=== PATIENT | female | born 1965 | race Two or more races ===

== ENCOUNTER 2016-07-25 22:37 | Inpatient (IN) | payer OTHER ==
[2016-07-25] MEDS ORDERED: NS 1,000 ML IV ONE ×2 (22:51→23:36)
[2016-07-25] MEDS ORDERED: IPRATROPIUM/ALBUTEROL 3 ML DEYVIAL IH ONE ×2 (22:55→23:37)
--- NOTE | 2016-07-25 23:00 | EDPHY ---
H & P Stated Complaint: 5 DAYS COUGH,SOB,DUARTE,FEVER,BLISTERS IN MOUTH, CP WITH COUGH, 2 ADVIL 2100 HPI/ROS: HPI CHIEF COMPLAINT: Cough, shortness of breath, productive cough, chills HISTORY OF PRESENT ILLNESS: This patient very pleasant 51-year-old female denies taking anydaily medications, no significant medical history, no history of pneumonia or pulmonary embolism. She presents emergency room being sick for 6 days. patient tells me that on Wednesday she started with a upper respiratory tract infection, she was in Wednesday she had worsening cough over the week it has progressively gotten worse she has had chills, nausea, productive cough with green yellow and possibly blood tinged sputum, posttussive emesis. No diarrhea. No chest pain but has pain when she coughs. No calf pain or leg swelling. She decided come the emergency room as she has been feeling worsening shortness of breath, cough, sore throat, chest discomfort. Of note this patient is Maltese-speaking only a hourly sign language interpreter was used at bedside. Of note also son speaks Thai and Maltese. Past Medical History: No medical history Past Surgical History: No surgical history Social History: denies daily use drugs alcohol tobacco products, and son at bedside, Maltese-speaking only, son speaks Maltese, Family History: Noncontributory ROS REVIEW OF SYSTEMS: A comprehensive 10 point review of systems is otherwise negative aside from elements mentioned in the history of present illness. Exam Constitutional appears nontoxic triage nursing summary reviewed, vital signs reviewed, awake/alert. Vital signs are reviewed this patient's hypoxic, tachycardic. Eyes normal conjunctivae and sclera, EOMI, PERRLA. HENT normal inspection, atraumatic, moist mucus membranes, no epistaxis, neck supple/ no meningismus, no raccoon eyes. Respiratory tachypneic, faint wheezing, productive sounding cough Cardiovascular tachycardia, regular rhythm, no murmur, no edema, distal pulses normal. Gastrointestinal soft, non-tender, no rebound, no guarding, normal bowel sounds, no distension, no pulsatile mass. Genitourinary no CVA tenderness. Musculoskeletal no midline vertebral tenderness, full range of motion, no calf swelling, no tenderness of extremities, no meningismus, good pulses, neurovascularly intact. Skin pink, warm, & dry, no rash, skin atraumatic. Neurologic awake, alert and oriented x 3, AAOx3, moves all 4 extremities equally, motor intact, sensory intact, CN II-XII intact, normal cerebellar, normal vision, normal speech. Psychiatric normal mood/affect. Heme/Lymph/Immune no lymphadenopathy. Differential Diagnosis: Includes but is not limited to in a particular order influenza, upper respiratory tract infection, viral pneumonia, bacterial pneumonia, pneumothorax, CHF, ACS Medical Decision Making: Plan for this patient patient had an IV established obtain blood work, she will be placed on full senior accounting clerk she will have an EKG, troponin should be hydrated with IV fluids normal saline 1 L gently, obtain lactic acid, she will need a chest x-ray visualize lung messina to make sure she does have focal pneumonia. Will check D-dimer. Vital signs reviewed triage noted to be hypoxic tachycardic. Afebrile.Tachypneic. Re-evaluation: EKG interpretation by me on record in [facility] system. Impression time of EKG 2300, this is sinus tachycardia rate of 103, I do not appreciate ST elevation or significant ST depression or significant T-wave abnormalities. QRS narrow. No signs of cardiac arrhythmia. Unremarkable nonischemic EKG. ED x-ray chest two view: haziness around right heart border, and haziness posterior lung messina. Retrocardiac. 2337: Re-examination at this time patient feels much better after DuoNeb breathing treatment. Resting comfortably. She is requesting a 2nd breathing treatment. Currently vitals heart rate 102, blood pressure 119/74, pulse ox 99 % on room air CT scan of the angiogram chest with IV contrast. The results of the study are negative for pulmonary embolism or focal pneumonia, airways are inflamed The study was read by Dr. Jones. I viewed the images myself on the PACS system. Re-eval: Time 1226: This time patient is noted to still be tachycardic and tachypneic. She required 2 L of oxygen to hold her oxygen saturation. Here in emergency room she has received 2 L of fluid, IV Solu-Medrol, 2 DuoNeb breathing treatments, IV azithromycin. Plan for this patient given that she is having tachypnea still tachycardia, hypoxia of oxygen she will require hospitalization overnight for IV fluids, and pulmonary care. 1235: Patient was briefly pulled off oxygen 2 L nasal cannula she desatted down to 86% heart rate went up to 120s. She is placed back on oxygen. 1245: patient is currently hemodynamically stable no acute distress resting comfortably on 2 L nasal cannula 95% O2 sat. Requires admission for hypoxia, tachycardia, dehydration, Upper respiratory tract infection bronchitis. Patient agrees stays updated family as well. Spoke with Dr. Mota who agrees to admit. Source: Patient - Personal History LMP (Females 10-55): Irregular Current Tetanus/Diphtheria Vaccine: Unsure - Medical/Surgical History Hx Asthma: No Hx Chronic Respiratory Disease: No Hx Diabetes: No Hx Cardiac Disease: No Hx Renal Disease: No Hx Cirrhosis: No Hx Alcoholism: No Hx HIV/AIDS: No Hx Splenectomy or Spleen Trauma: No Other PMH: C-SECT X2, MISCARAGE - Social History Smoking Status: Never smoked Constitutional: Initial Vital Signs Temperature (C) 37.2 C 07/25/16 22:44 Heart Rate 113 H 07/25/16 22:44 Respiratory Rate 30 H 07/25/16 22:44 Blood Pressure 152/87 H 07/25/16 22:44 O2 Sat (%) 87 L 07/25/16 22:44 O2 Delivery Mode Room Air O2 (L/minute) 4 Allergies/Adverse Reactions: No Known Allergies Allergy (Unverified 07/25/16 22:43) Medical Decision Making - Data Points Laboratory Results: Laboratory Results 07/25/16 23:00 07/25/16 23:00 07/25/16 07/25/16 07/25/16 23:15 23:00 23:00 WBC RBC Hgb Hct MCV MCH MCHC RDW Plt Count MPV Neut % (Auto) Lymph % (Auto) [place] % (Auto) Eos % (Auto) Baso % (Auto) Nucleat RBC Rel Count Absolute Neuts (auto) Absolute Lymphs (auto) Absolute Monos (auto) Absolute Eos (auto) Absolute Basos (auto) Absolute Nucleated RBC Immature Gran % Immature Gran # PT INR APTT D-Dimer VBG Lactic Acid 1.5 mmol/L mmol/L (0.7-2.1) Sodium 138 mEq/L mEq/L (134-144) Potassium 3.6 mEq/L mEq/L (3.5-5.2) Chloride 100 mEq/L mEq/L (97-110) Carbon Dioxide 24 mEq/l mEq/l (22-31) Anion Gap 14 mEq/L mEq/L (8-16) BUN 8 mg/dL mg/dL (7-23) Creatinine 0.5 mg/dL L mg/dL (0.6-1.0) Estimated GFR > 60 Glucose 143 mg/dL H mg/dL (70-100) Calcium 9.1 mg/dL mg/dL (8.5-10.4) Magnesium 2.4 mg/dL H mg/dL (1.6-2.3) Total Bilirubin 0.7 mg/dL mg/dL (0.1-1.4) Conjugated Bilirubin 0.3 mg/dL mg/dL (0.0-0.5) Unconjugated Bilirubin 0.4 mg/dL mg/dL (0.0-1.1) AST 28 IU/L IU/L (14-46) ALT 40 IU/L IU/L (9-52) Alkaline Phosphatase 84 IU/L IU/L (38-126) Creatine Kinase 91 IU/L IU/L (0-156) CK-MB (CK-2) Fraction 0.68 ng/mL ng/mL (0-3.19) Troponin I < 0.012 ng/mL ng/mL (0-0.034) NT-Pro-B Natriuret Pep 41 pg/mL pg/mL (0-125) Total Protein 8.1 g/dL g/dL (6.3-8.2) Albumin 4.3 g/dL g/dL (3.5-5.0) Lipase 70.0 IU/L IU/L (23-300) Influenza Typ A,B (DFA) NEGATIVE FOR FLU (NEGATIVE) 07/25/16 07/25/16 23:00 23:00 WBC 13.22 10^3/uL H 10^3/uL (3.80-9.50) RBC 4.60 10^6/uL 10^6/uL (4.18-5.33) Hgb 13.5 g/dL g/dL (12.6-16.3) Hct 39.6 % % (38.0-47.0) MCV 86.1 fL fL (81.5-99.8) MCH 29.3 pg pg (27.9-34.1) MCHC 34.1 g/dL g/dL (32.4-36.7) RDW 13.0 % % (11.5-15.2) Plt Count 309 10^3/uL 10^3/uL (150-400) MPV 10.2 fL fL (8.7-11.7) Neut % (Auto) 71.7 % % (39.3-74.2) Lymph % (Auto) 13.8 % L % (15.0-45.0) [place] % (Auto) 7.0 % % (4.5-13.0) Eos % (Auto) 5.9 % % (0.6-7.6) Baso % (Auto) 0.5 % % (0.3-1.7) Nucleat RBC Rel Count 0.0 % % (0.0-0.2) Absolute Neuts (auto) 9.47 10^3/uL H 10^3/uL (1.70-6.50) Absolute Lymphs (auto) 1.82 10^3/uL 10^3/uL (1.00-3.00) Absolute Monos (auto) 0.93 10^3/uL H 10^3/uL (0.30-0.80) Absolute Eos (auto) 0.78 10^3/uL H 10^3/uL (0.03-0.40) Absolute Basos (auto) 0.07 10^3/uL 10^3/uL (0.02-0.10) Absolute Nucleated RBC 0.00 10^3/uL 10^3/uL (0-0.01) Immature Gran % 1.1 % % (0.0-1.1) Immature Gran # 0.15 10^3/uL H 10^3/uL (0.00-0.10) PT 13.4 SEC SEC (12.0-15.0) INR 1.03 (0.83-1.16) APTT 28.9 SEC SEC (23.0-38.0) D-Dimer 0.64 ug/mLFEU H ug/mLFEU (0.00-0.50) VBG Lactic Acid Sodium Potassium Chloride Carbon Dioxide Anion Gap BUN Creatinine Estimated GFR Glucose Calcium Magnesium Total Bilirubin Conjugated Bilirubin Unconjugated Bilirubin AST ALT Alkaline Phosphatase Creatine Kinase CK-MB (CK-2) Fraction Troponin I NT-Pro-B Natriuret Pep Total Protein Albumin Lipase Influenza Typ A,B (DFA) Medications Given: Discontinued Medications Albuterol/Ipratropium (Duoneb) 3 ml IH EDNOW ONE Stop: 07/25/16 22:56 Last Admin: 07/25/16 23:08 Dose: 3 ml Albuterol/Ipratropium (Duoneb) 3 ml IH EDNOW ONE Stop: 07/25/16 23:38 Last Admin: 07/26/16 00:09 Dose: 3 ml Sodium Chloride (Ns) 1,000 mls @ 0 mls/hr IV ONCE ONE PRN Reason: Wide Open Stop: 07/25/16 22:52 Last Admin: 07/25/16 23:08 Dose: 1,000 mls Sodium Chloride (Ns) 1,000 mls @ 0 mls/hr IV ONCE ONE PRN Reason: Wide Open Stop: 07/25/16 23:37 Last Admin: 07/26/16 00:10 Dose: 1,000 mls Methylprednisolone Sodium Succinate (Solu-Medrol) 125 mg IVP EDNOW ONE Stop: 07/26/16 00:09 Last Admin: 07/26/16 00:35 Dose: 125 mg Departure - Departure Disposition: [facility] Inpatient Acute Clinical Impression: Bronchitis, Hypoxia Condition: Fair Referrals: NONE *PRIMARY CARE P,. [Primary Care Provider] - As per Instructions
--- NOTE | 2016-07-25 23:02 | CPEKG ---
Heart Rate: 103 RR Interval: 583 P-R Interval: 148 QRSD Interval: 72 QT Interval: 328 QTC Interval: 430 P [place]: 47 QRS [place]: 76 T Wave [place]: 64 EKG Severity - OTHERWISE NORMAL ECG - EKG Impression: SINUS TACHYCARDIA Electronically Signed By: Bear Lamb 26-Jul-2016 06:41:29
[2016-07-25 23:07] LABS: % IMMATURE GRANULYOCYTES 1.1 % (0.0-1.1); ABSOLUTE IMMATURE GRANULOCYTES 0.15 10^3/uL (0.00-0.10); ADD DIFF? NO; ADD MORPH? NO; ADD SCAN? NO; ATYPICAL LYMPHOCYTE FLAG 30 (0-99); FRAGMENT RBC FLAG 0 (0-99); HEMATOCRIT 39.6 % (38.0-47.0); HEMOGLOBIN 13.5 g/dL (12.6-16.3); LEFT SHIFT FLG 20 (0-99); LIPEMIA HEMOLYSIS FLAG 90 (0-99); MEAN CELL HEMOGLOBIN 29.3 pg (27.9-34.1); MEAN CELL HEMOGLOBIN CONCENTR. 34.1 g/dL (32.4-36.7); MEAN CELL VOLUME 86.1 fL (81.5-99.8); MEAN PLATELET VOLUME 10.2 fL (8.7-11.7); PLATELET CLUMPS FLAG 10 (0-99); PLATELET COUNT 309 10^3/uL (150-400)
[2016-07-25 23:22] LABS: INR 1.03 (0.83-1.16); PROTIME(PATIENT) 13.4 SEC (12.0-15.0)
[2016-07-25 23:23] LABS: APTT 28.9 SEC (23.0-38.0)
[2016-07-25 23:24] LABS: ALANINE AMINOTRANSFERASE 40 IU/L (9-52); ALBUMIN 4.3 g/dL (3.5-5.0); ALKALINE PHOSPHATASE 84 IU/L (38-126); ANION GAP 14 mEq/L (8-16); ASPARTATE AMINOTRANSFERASE 28 IU/L (14-46); BILIRUBIN,TOTAL 0.7 mg/dL (0.1-1.4); BILIRUBIN-CONJUGATED 0.3 mg/dL (0.0-0.5); BILIRUBIN-UNCONJUGATED 0.4 mg/dL (0.0-1.1); CALCIUM 9.1 mg/dL (8.5-10.4); CARBON DIOXIDE 24 mEq/l (22-31); CHLORIDE 100 mEq/L (97-110); CREATININE 0.5 mg/dL (0.6-1.0); GLOMERULAR FILTRATION RATE > 60; GLUCOSE 143 mg/dL (70-100); MAGNESIUM 2.4 mg/dL (1.6-2.3); POTASSIUM 3.6 mEq/L (3.5-5.2); SODIUM 138 mEq/L (134-144); TOTAL PROTEIN 8.1 g/dL (6.3-8.2)
[2016-07-25] MEDS ORDERED: IOPAMIDOL (ISOVUE 370) 100 ML BTL IV ONE (23:32)
[2016-07-25] MEDS ORDERED: HYDROCODONE/APAP 10/325 TAB PO ONE (23:35)
[2016-07-25 23:36] LABS: CREATINE KINASE-MB FRACTION 0.68 ng/mL (0-3.19); TROPONIN I < 0.012 ng/mL (0-0.034)
[2016-07-26] MEDS ORDERED: AZITHROMYCIN IV 500 MG in D5W 250 ML IV ONE (00:08)
[2016-07-26] MEDS ORDERED: methylPREDNISolone SOD SUCC 125 MG/2 ML VIAL IVP ONE (00:08)
[2016-07-26] MEDS ORDERED: ONDANSETRON DISINTEGRATING 4 MG TAB PO PRN (01:21)
[2016-07-26] MEDS ORDERED: ONDANSETRON 4 MG/2 ML VIAL IVP PRN (01:21)
[2016-07-26] MEDS ORDERED: ALBUTEROL 3 ML DEYVIAL IH PRN (01:21)
[2016-07-26] MEDS: oxyCODONE IR 5 MG TAB PO PRN ×2 (02:19→23:00)
[2016-07-26] MEDS: LORazepam 0.5 MG TAB PO PRN ×2 (02:21→23:00)
[2016-07-26] MEDS: ACETAMINOPHEN 325 MG TAB PO PRN ×2 (02:28→11:24)
[2016-07-26] MEDS: NS 1,000 ML IV SCH ×2 (02:29→11:53)
--- NOTE | 2016-07-26 02:37 | PDGENHP ---
History and Physical - Chief Complaint sob/cough - History of Present Illness 51 yo Stateless speaking female with no significant PMH presenting with 6 days of sob, cough and increased sputum production. She notes that initially it seemed similar to prior cold's or flu's she has had, but over the last couple of days , she has had significantly worsening shortness of breath to the point where she can hardly walk around without becoming quite winded. She has had subjective fevers and chills. She has not been able to get the sputum out and she thinks this has made it more difficult to manage these sxs. She has never had similar issues in the past. She does not have any chronic lung issues or hx of asthma etc. She has not had any sick contacts that she is aware of. She has not had chest pain or pain in her legs/calves. History Information - Allergies/Home Medication List Allergies/Adverse Reactions: No Known Allergies Allergy (Unverified 07/25/16 22:43) I have personally reviewed and updated: family history, medical history, social history, surgical history - Surgical History Additional surgical history: C section x 2 - Family History Positive for: non-pertinent - Social History Smoking Status: Never smoked Alcohol Use: None Drug Use: None Additional social history: , has 2 children Review of Systems ROS: 10pt was reviewed & negative except for what was stated in HPI & below Physical Exam Temp Pulse Resp BP Pulse Ox 37.2 C 115 H 20 114/65 93 07/25/16 22:44 07/26/16 01:30 07/26/16 01:30 07/26/16 01:30 07/26/16 01:30 O2 (L/minute) 4 Constitutional: no apparent distress, obese, uncomfortable Eyes: PERRL, anicteric sclera Ears, Nose, Mouth, Throat: moist mucous membranes, hearing normal Cardiovascular: no murmur, rub, or gallop, tachycardia, No edema Respiratory: no rales or rhonchi, bronchial breath sounds, respiratory distress Gastrointestinal: normoactive bowel sounds, soft, non-tender abdomen Genitourinary: no bladder tenderness Skin: warm, normal color Musculoskeletal: full muscle strength, no muscle tenderness, No asymmetric calves, No abnormal gait Neurologic: AAOx3 Psychiatric: interacting appropriately, not anxious, not encephalopathic Lab Data & Imaging Review 07/25/16 23:00 07/25/16 23:00 WBC 13.22 10^3/uL (3.80-9.50) H 07/25/16 23:00 RBC 4.60 10^6/uL (4.18-5.33) 07/25/16 23:00 Hgb 13.5 g/dL (12.6-16.3) 07/25/16 23:00 Hct 39.6 % (38.0-47.0) 07/25/16 23:00 MCV 86.1 fL (81.5-99.8) 07/25/16 23:00 MCH 29.3 pg (27.9-34.1) 07/25/16 23:00 MCHC 34.1 g/dL (32.4-36.7) 07/25/16 23:00 RDW 13.0 % (11.5-15.2) 07/25/16 23:00 Plt Count 309 10^3/uL (150-400) 07/25/16 23:00 MPV 10.2 fL (8.7-11.7) 07/25/16 23:00 Neut % (Auto) 71.7 % (39.3-74.2) 07/25/16 23:00 Lymph % (Auto) 13.8 % (15.0-45.0) L 07/25/16 23:00 [place] % (Auto) 7.0 % (4.5-13.0) 07/25/16 23:00 Eos % (Auto) 5.9 % (0.6-7.6) 07/25/16 23:00 Baso % (Auto) 0.5 % (0.3-1.7) 07/25/16 23:00 Nucleat RBC Rel Count 0.0 % (0.0-0.2) 07/25/16 23:00 Absolute Neuts (auto) 9.47 10^3/uL (1.70-6.50) H 07/25/16 23:00 Absolute Lymphs (auto) 1.82 10^3/uL (1.00-3.00) 07/25/16 23:00 Absolute Monos (auto) 0.93 10^3/uL (0.30-0.80) H 07/25/16 23:00 Absolute Eos (auto) 0.78 10^3/uL (0.03-0.40) H 07/25/16 23:00 Absolute Basos (auto) 0.07 10^3/uL (0.02-0.10) 07/25/16 23:00 Absolute Nucleated RBC 0.00 10^3/uL (0-0.01) 07/25/16 23:00 Immature Gran % 1.1 % (0.0-1.1) 07/25/16 23:00 Immature Gran # 0.15 10^3/uL (0.00-0.10) H 07/25/16 23:00 PT 13.4 SEC (12.0-15.0) 07/25/16 23:00 INR 1.03 (0.83-1.16) 07/25/16 23:00 APTT 28.9 SEC (23.0-38.0) 07/25/16 23:00 D-Dimer 0.64 ug/mLFEU (0.00-0.50) H 07/25/16 23:00 VBG Lactic Acid 1.5 mmol/L (0.7-2.1) 07/25/16 23:00 Sodium 138 mEq/L (134-144) 07/25/16 23:00 Potassium 3.6 mEq/L (3.5-5.2) 07/25/16 23:00 Chloride 100 mEq/L (97-110) 07/25/16 23:00 Carbon Dioxide 24 mEq/l (22-31) 07/25/16 23:00 Anion Gap 14 mEq/L (8-16) 07/25/16 23:00 BUN 8 mg/dL (7-23) 07/25/16 23:00 Creatinine 0.5 mg/dL (0.6-1.0) L 07/25/16 23:00 Estimated GFR > 60 07/25/16 23:00 Glucose 143 mg/dL (70-100) H 07/25/16 23:00 Calcium 9.1 mg/dL (8.5-10.4) 07/25/16 23:00 Magnesium 2.4 mg/dL (1.6-2.3) H 07/25/16 23:00 Total Bilirubin 0.7 mg/dL (0.1-1.4) 07/25/16 23:00 Conjugated Bilirubin 0.3 mg/dL (0.0-0.5) 07/25/16 23:00 Unconjugated Bilirubin 0.4 mg/dL (0.0-1.1) 07/25/16 23:00 AST 28 IU/L (14-46) 07/25/16 23:00 ALT 40 IU/L (9-52) 07/25/16 23:00 Alkaline Phosphatase 84 IU/L (38-126) 07/25/16 23:00 Creatine Kinase 91 IU/L (0-156) 07/25/16 23:00 CK-MB (CK-2) Fraction 0.68 ng/mL (0-3.19) 07/25/16 23:00 Troponin I < 0.012 ng/mL (0-0.034) 07/25/16 23:00 NT-Pro-B Natriuret Pep 41 pg/mL (0-125) 07/25/16 23:00 Total Protein 8.1 g/dL (6.3-8.2) 07/25/16 23:00 Albumin 4.3 g/dL (3.5-5.0) 07/25/16 23:00 Lipase 70.0 IU/L (23-300) 07/25/16 23:00 Influenza Typ A,B (DFA) NEGATIVE FOR FLU (NEGATIVE) 07/25/16 23:15 Visualized and Interpreted Chest x-ray results: Yes Chest X-Ray results: other (c/w bronchitis) Visualized and Interpreted imaging results: Yes Interpretation: CTA chest: no PE, interstitial prominence c/w interstitial pna/ viral pna Visualized and Interpreted EKG results: Yes EKG Interpretation: Positive for: other (sinus tachycardia) Assessment & Plan Assessment: Bronchitis (Acute) Hypoxia (Acute) Plan: 51 yo F with no known PMH presenting with several days of UR sxs presenting with acute hypoxic respiratory failure with underlying bronchitis/viral or atypical pna # acute hypoxic respiratory failure: presenting with room air sats in the low 80s, and despite breathing tx's and abx in ER, continues to desaturate to low to mid 80s on RA. Following neb therapy her lungs are quite clear, however initially she was noted to be wheezing c/w bronchitis as next. No PE on CTA. Tx as next. # acute bronchitis: likely etiology for above, improved wheezing post nebs and steroids but still hypoxic. Continue scheduled nebs, pred 40 x 3 days, will treat for possible concurrent atypical pna as next as well. IS, ambulation. # viral vs atypical pna: CT and cxr notable for interstitial prominence c/w viral versus atypical pna in the setting of acute bronchitis as above. She does not provide a hx suggestive of a more chronic interstitial process. Will tx with short course of levofloxacin so long as continues to clinically improve. Would recommend she obtain f/u chest imaging in several months to be sure current findings resolve. Flu negative. # leukocytosis: in setting of above, patient non toxic appearing, blood cultures pending # hyperglycemia: suspect stress response related to above however given BMI of 31, underlying DM certainly possible, if glucose remains elevated on am labs will check A1c # dispo: observation status Patient new to my care. Care plan reviewed with ER doctor including plans for overnight observation. Further hx obtained from patients son present at bedside.
[2016-07-26] MEDS: guaiFENesin/CODEINE PHOS 10 ML UDCUP PO PRN ×3 (03:00→22:57)
[2016-07-26] MEDS: IPRATROPIUM/ALBUTEROL 3 ML DEYVIAL IH SCH ×4 (05:46→20:47)
[2016-07-26 06:39] LABS: % IMMATURE GRANULYOCYTES 1.1 % (0.0-1.1); ABSOLUTE IMMATURE GRANULOCYTES 0.12 10^3/uL (0.00-0.10); ADD DIFF? NO; ADD MORPH? NO; ADD SCAN? NO; ATYPICAL LYMPHOCYTE FLAG 20 (0-99); FRAGMENT RBC FLAG 0 (0-99); HEMATOCRIT 37.9 % (38.0-47.0); HEMOGLOBIN 12.4 g/dL (12.6-16.3); LEFT SHIFT FLG 20 (0-99); LIPEMIA HEMOLYSIS FLAG 80 (0-99); MEAN CELL HEMOGLOBIN CONCENTR. 32.7 g/dL (32.4-36.7); MEAN CELL VOLUME 88.8 fL (81.5-99.8); MEAN PLATELET VOLUME 10.5 fL (8.7-11.7); PLATELET CLUMPS FLAG 10 (0-99); PLATELET COUNT 284 10^3/uL (150-400); RED BLOOD CELL COUNT 4.27 10^6/uL (4.18-5.33); RED CELL DISTRIBUTION WIDTH 13.2 % (11.5-15.2)
[2016-07-26 07:21] LABS: ANION GAP 15 mEq/L (8-16); CALCIUM 8.5 mg/dL (8.5-10.4); CARBON DIOXIDE 22 mEq/l (22-31); CHLORIDE 108 mEq/L (97-110); CREATININE 0.5 mg/dL (0.6-1.0); GLOMERULAR FILTRATION RATE > 60; GLUCOSE 183 mg/dL (70-100); POTASSIUM 4.4 mEq/L (3.5-5.2); SODIUM 145 mEq/L (134-144)
[2016-07-26 07:31] LABS: TROPONIN I < 0.012 ng/mL (0-0.034)
[2016-07-26] MEDS: predniSONE 20 MG TAB PO SCH (09:33)
[2016-07-26] MEDS: ENOXAPARIN 40 MG/0.4 ML SYR SC SCH (09:58)
[2016-07-26] MEDS ORDERED: CEPACOL LOZENGE PO PRN (12:18)
--- NOTE | 2016-07-26 14:42 | HOSPPROG ---
Hospitalist Progress Note Assessment/Plan: #Acute hypoxic resp failure: due to bronchitis vs. atypical PNA. Negative flu. No PE. Improved after nebs. Cont LQ and pred for 5 days. PRN albuterol at home #Bronchitis: plan as above #Leukocytosis: resolved #Hyperglycemia: stress-response? Check A1c #Disp: DC tomorrow if clinically improved, may need O2 at home Subjective: SOB improved mildly Objective: Vital Signs Temp Pulse Resp BP Pulse Ox 36.7 C 89 16 106/60 93 07/26/16 11:22 07/26/16 11:42 07/26/16 11:42 07/26/16 11:22 07/26/16 11:42 Laboratory Results 07/26/16 06:25 07/26/16 06:25 07/25/16 07/26/16 07/27/16 05:59 05:59 05:59 Intake Total 2445 Output Total 400 Balance 2045 PT 13.4 SEC (12.0-15.0) 07/25/16 23:00 INR 1.03 (0.83-1.16) 07/25/16 23:00 - Physical Exam Constitutional: no apparent distress Eyes: PERRL Ears, Nose, Mouth, Throat: moist mucous membranes Cardiovascular: regular rate and rhythym, no murmur, rub, or gallop Respiratory: rhonchi Gastrointestinal: normoactive bowel sounds, soft, non-tender abdomen Genitourinary: no bladder fullness Skin: warm, other (diaphoretic) Musculoskeletal: full muscle strength Neurologic: AAOx3 ICD10 Worksheet Patient Problems: Problems Problem Status Onset Bronchitis Acute Hypoxia Acute
[2016-07-26] MEDS: guaiFENesin 600 MG TAB.ER PO SCH (23:53)
[2016-07-27] MEDS: IPRATROPIUM/ALBUTEROL 3 ML DEYVIAL IH SCH ×4 (05:40→20:42)
[2016-07-27] MEDS: guaiFENesin/CODEINE PHOS 10 ML UDCUP PO PRN (05:58)
[2016-07-27 06:14] LABS: HEMATOCRIT 31.7 % (38.0-47.0); HEMOGLOBIN 9.8 g/dL (12.6-16.3); MEAN CELL HEMOGLOBIN 28.6 pg (27.9-34.1); MEAN CELL HEMOGLOBIN CONCENTR. 30.9 g/dL (32.4-36.7); MEAN CELL VOLUME 92.4 fL (81.5-99.8); RED BLOOD CELL COUNT 3.43 10^6/uL (4.18-5.33); RED CELL DISTRIBUTION WIDTH 13.3 % (11.5-15.2)
[2016-07-27 06:30] LABS: ANION GAP 8 mEq/L (8-16); CALCIUM 6.8 mg/dL (8.5-10.4); CARBON DIOXIDE 17 mEq/l (22-31); CHLORIDE 118 mEq/L (97-110); CREATININE 0.4 mg/dL (0.6-1.0); GLOMERULAR FILTRATION RATE > 60; GLUCOSE 107 mg/dL (70-100); POTASSIUM 3.9 mEq/L (3.5-5.2); SODIUM 143 mEq/L (134-144)
[2016-07-27] MEDS ORDERED: MAGNESIUM HYDROXIDE 30 ML UDCUP PO PRN (10:06)
[2016-07-27] MEDS ORDERED: BISACODYL 10 MG SUPP PR PRN (10:06)
[2016-07-27] MEDS ORDERED: POLYETHYLENE GLYCOL 3350 17 GM PKT PO PRN (10:06)
[2016-07-27] MEDS ORDERED: LACTULOSE 20 GM/30 ML UDCUP PO PRN (10:06)
[2016-07-27] MEDS: SENNOSIDES/DOCUSATE SODIUM TAB PO SCH ×2 (11:13→20:19)
[2016-07-27] MEDS: predniSONE 20 MG TAB PO SCH (11:13)
[2016-07-27] MEDS: BENZONATATE 100 MG CAP PO PRN (11:13)
[2016-07-27] MEDS: guaiFENesin 600 MG TAB.ER PO SCH ×2 (11:13→20:19)
[2016-07-27] MEDS: ENOXAPARIN 40 MG/0.4 ML SYR SC SCH (11:14)
--- NOTE | 2016-07-27 14:52 | HOSPPROG ---
Hospitalist Progress Note Assessment/Plan: Assessment: 51-year-old female presents with acute hypoxic respiratory failure in the setting of acute reactive airway disease exacerbation Plan: # Acute hypoxic resp failure: Evidenced by SpO2 of 86% on room air with objective tachypnea respiratory rate of 30 with symptomatic shortness of breath , secondary to acute reactive airway exacerbation, requiring supplemental oxygen and pulse oximeter monitoring (agree w/ outside records reviewed, i.e. Dr. Barraza's progress note from 07/26/16 stating this diagnosis) - will likely require supp o2 at discharge, cont wean attempts # Acute reactive airway exacerbation: New problem to this provider, further w/u indicated. Evidenced by diffuse exp wheezes, bronchial breath sounds, resp failure, cough, likely URI precipitant - CTA w/ pneumonitis (personally interpreted) - get flu PCR - clinically unresolved - cont on scheduled duonebs, levofloxacin, prednisone # Hyperglycemia: Acute, checked A1c Diet. Regular PPx. High risk, lovenox 40 Code. Full Dispo. ADD uncertain, upgraded to inpatient admission status re: anticipated LOS > 48hrs for reasonable medical necessity including acute reactive airway exacerbation/resp failure, remains clinically unresolved. Subjective: Continues to experience coughing, shortness of breath Objective: Vital Signs Temp Pulse Resp BP Pulse Ox 37.2 C 96 16 119/75 94 07/27/16 08:00 07/27/16 10:54 07/27/16 10:54 07/27/16 08:00 07/27/16 10:54 Laboratory Results 07/27/16 06:00 07/27/16 06:00 07/26/16 07/27/16 07/28/16 05:59 05:59 05:59 Intake Total 2445 3869 375 Output Total 400 800 Balance 2045 3869 -425 PT 13.4 SEC (12.0-15.0) 07/25/16 23:00 INR 1.03 (0.83-1.16) 07/25/16 23:00 - Physical Exam Constitutional: no apparent distress, appears nourished, not in pain Cardiovascular: regular rate and rhythym, no murmur, rub, or gallop Respiratory: reduced air movement (On expiration, with cough triggered by deep breathing), expiratory wheeze, bronchial breath sounds, No inspiratory crackles Gastrointestinal: normoactive bowel sounds, soft, non-tender abdomen, no palpable masses Neurologic: AAOx3, sensation intact bilaterally Psychiatric: interacting appropriately, not anxious, not encephalopathic, thought process linear ICD10 Worksheet Patient Problems: Problems Problem Status Onset Bronchitis Acute Hypoxia Acute
[2016-07-28] MEDS: guaiFENesin/CODEINE PHOS 10 ML UDCUP PO PRN ×2 (05:15→17:19)
[2016-07-28] MEDS: IPRATROPIUM/ALBUTEROL 3 ML DEYVIAL IH SCH ×4 (05:29→21:00)
[2016-07-28] MEDS: ENOXAPARIN 40 MG/0.4 ML SYR SC SCH (08:53)
[2016-07-28] MEDS: guaiFENesin 600 MG TAB.ER PO SCH ×2 (08:53→19:32)
[2016-07-28] MEDS: BENZONATATE 100 MG CAP PO PRN (08:54)
[2016-07-28] MEDS: predniSONE 20 MG TAB PO SCH (08:54)
[2016-07-28] MEDS: SENNOSIDES/DOCUSATE SODIUM TAB PO SCH ×2 (08:54→19:32)
[2016-07-28] MEDS ORDERED: predniSONE 20 MG TAB PO ONE (12:31)
--- NOTE | 2016-07-28 12:34 | HOSPPROG ---
Hospitalist Progress Note Assessment/Plan: Assessment: 51-year-old female presents with acute hypoxic respiratory failure in the setting of acute reactive airway disease exacerbation Plan: # Acute hypoxic resp failure: Evidenced by SpO2 of 86% on room air with objective tachypnea respiratory rate of 30 with symptomatic shortness of breath , secondary to acute reactive airway exacerbation, requiring supplemental oxygen and pulse oximeter monitoring - will likely require supp o2 at discharge, cont wean attempts # Acute reactive airway exacerbation: Evidenced by diffuse exp wheezes, bronchial breath sounds, resp failure, cough, likely URI precipitant - CTA w/ pneumonitis (personally interpreted) - influenza PCR negative - clinically unresolved, worsening inspiratory rhonchi today warranting repeat chest x-ray to ensure she does not have worsening pneumonia - cont on scheduled duonebs, levofloxacin, prednisone (increased dosage from 40 mg to 60 mg) # Hyperglycemia: Acute, checked A1c Diet. Regular PPx. High risk, lovenox 40 Code. Full Dispo. ADD uncertain, remains clinically on resolved, continues to require supplemental oxygen, worsening respiratory sounds on inspiration and expiration. Subjective: Continues to feel short of breath with ambulation, continues to feel like she cannot take a full breath Objective: Vital Signs Temp Pulse Resp BP Pulse Ox 36.6 C 104 H 12 122/71 H 92 07/28/16 08:40 07/28/16 10:40 07/28/16 10:40 07/28/16 08:40 07/28/16 10:40 07/27/16 07/28/16 07/29/16 05:59 05:59 05:59 Intake Total 2675 Output Total 1400 Balance 1275 PT 13.4 SEC (12.0-15.0) 07/25/16 23:00 INR 1.03 (0.83-1.16) 07/25/16 23:00 - Physical Exam Constitutional: no apparent distress, appears nourished, not in pain Eyes: PERRL, anicteric sclera, EOMI Cardiovascular: tachycardia, No systolic murmur, No irregularly irregular, No edema Respiratory: reduced air movement (On expiration bilaterally, clear triggering cough), expiratory wheeze, inspiratory crackles (Bilateral bases), bronchial breath sounds Gastrointestinal: normoactive bowel sounds, soft, non-tender abdomen, no palpable masses Neurologic: AAOx3, sensation intact bilaterally Psychiatric: interacting appropriately, not anxious, not encephalopathic, thought process linear ICD10 Worksheet Patient Problems: Problems Problem Status Onset Bronchitis Acute Hypoxia Acute
[2016-07-29] MEDS: guaiFENesin/CODEINE PHOS 10 ML UDCUP PO PRN ×3 (05:05→20:07)
[2016-07-29] MEDS: IPRATROPIUM/ALBUTEROL 3 ML DEYVIAL IH SCH ×4 (06:04→20:43)
[2016-07-29] MEDS: predniSONE 20 MG TAB PO SCH (08:58)
[2016-07-29] MEDS: ENOXAPARIN 40 MG/0.4 ML SYR SC SCH (08:58)
[2016-07-29] MEDS: guaiFENesin 600 MG TAB.ER PO SCH ×2 (08:59→20:07)
[2016-07-29] MEDS: SENNOSIDES/DOCUSATE SODIUM TAB PO SCH ×2 (08:59→20:07)
[2016-07-29] MEDS: BENZONATATE 100 MG CAP PO PRN ×2 (09:04→18:15)
[2016-07-29] MEDS: ACETAMINOPHEN 325 MG TAB PO PRN (12:02)
--- NOTE | 2016-07-29 16:00 | HOSPPROG ---
Hospitalist Progress Note Assessment/Plan: Assessment: 51-year-old female presents with acute hypoxic respiratory failure in the setting of acute reactive airway disease exacerbation Plan: # Acute hypoxic resp failure: Evidenced by SpO2 of 86% on room air with objective tachypnea respiratory rate of 30 with symptomatic shortness of breath , secondary to acute reactive airway exacerbation, requiring supplemental oxygen and pulse oximeter monitoring - remains hypoxic and symptomatic on room air, cont supp o2 # Acute reactive airway exacerbation: Evidenced by diffuse exp wheezes, bronchial breath sounds, resp failure, cough, likely URI precipitant - CTA w/ pneumonitis, repeat CXR w/o focal PNA (personally interpreted) - influenza PCR negative - clinically unresolved, remains hypoxic on room air today - cont on scheduled duonebs, levofloxacin, prednisone (60 mg) # Hyperglycemia: Acute, checked A1c Diet. Regular PPx. High risk, lovenox 40 Code. Full Dispo. ADD uncertain, remains clinically on resolved, continues to require supplemental oxygen and tachypneic on room air. Subjective: Patient reports significant coughing this morning, alleviated with cough medication Objective: Vital Signs Temp Pulse Resp BP Pulse Ox 36.6 C 113 H 20 120/76 91 L 07/29/16 08:00 07/29/16 11:55 07/29/16 11:55 07/29/16 08:00 07/29/16 11:55 07/28/16 07/29/16 07/30/16 05:59 05:59 05:59 Intake Total 2675 1900 Output Total 1400 Balance 1275 1900 PT 13.4 SEC (12.0-15.0) 07/25/16 23:00 INR 1.03 (0.83-1.16) 07/25/16 23:00 - Physical Exam Constitutional: no apparent distress, appears nourished, not in pain Cardiovascular: regular rate and rhythym, no murmur, rub, or gallop Respiratory: reduced air movement (Shortened expiratory phase bilaterally), bronchial breath sounds (Faint at the end of expiration), No expiratory wheeze, No inspiratory crackles, No respiratory distress Gastrointestinal: normoactive bowel sounds, soft, non-tender abdomen, no palpable masses Neurologic: AAOx3, No facial droop Psychiatric: interacting appropriately, not anxious, not encephalopathic, thought process linear ICD10 Worksheet Patient Problems: Problems Problem Status Onset Bronchitis Acute Hypoxia Acute
[2016-07-30] MEDS: guaiFENesin/CODEINE PHOS 10 ML UDCUP PO PRN ×2 (04:40→12:31)
[2016-07-30] MEDS: IPRATROPIUM/ALBUTEROL 3 ML DEYVIAL IH SCH ×2 (05:27→12:05)
[2016-07-30 07:59] VITALS: BP 114/69; TEMP 98
[2016-07-30] MEDS: predniSONE 20 MG TAB PO SCH (09:28)
[2016-07-30] MEDS: guaiFENesin 600 MG TAB.ER PO SCH (09:29)
[2016-07-30] MEDS: BENZONATATE 100 MG CAP PO PRN (09:29)
[2016-07-30] MEDS: SENNOSIDES/DOCUSATE SODIUM TAB PO SCH (09:29)
[2016-07-30] MEDS: ENOXAPARIN 40 MG/0.4 ML SYR SC SCH (09:30)
[2016-07-30] MEDS ORDERED: ALBUTEROL 60 PUFFS/8 GM MDI IH PRN (10:33)
--- NOTE | 2016-07-30 10:43 | PDDCSUM ---
Discharge Summary Discharge Summary: DISCHARGE SUMMARY FOLLOW-UP ITEMS: Get outpatient pulmonary function test [facility], check hemoglobin A1c as an outpatient DATE OF ADMISSION: 07/25/2016 DATE OF DISCHARGE: 07/30/16 DISCHARGE DIAGNOSES: 1. Acute hypoxic respiratory failure 2. Acute reactive airway exacerbation 3. Acute hyperglycemia CONSULTATIONS: None PROCEDURES / IMAGING: Chest CT demonstrating no focal airspace disease, no pulmonary embolism CHIEF COMPLAINT: Acute shortness of breath SUBJECTIVE: Patient is able to ambulate with minimal shortness of breath, she is not short of breath at rest on room air PHYSICAL EXAM ON DISCHARGE: SpO2 on room air at rest is 91-95%, no expiratory wheezes, faint expiratory bronchial breath sounds and faint inspiratory crackles, improved from presentation LABS ON DISCHARGE: None HOSPITAL COURSE BY PROBLEM: 1. Acute hypoxic respiratory failure. Evidenced by SpO2 of 86% on room air with objective tachypnea, respiratory rate of 30, symptomatic shortness of breath, labored breathing, secondary to acute reactive airway exacerbation requiring supplemental oxygen and pulse oximeter monitoring. Patient's hospitalization was extended secondary to prolonged hypoxia and symptomatic shortness of breath with any level of activity. She does not have access to supplemental oxygen as an outpatient due to her insurance status. Consequently she requires ongoing hospitalization until she was no longer hypoxic at rest on room air. On the date of discharge, her SpO2 is 91 95% on room air at rest I have advised the patient that if she experiences any symptomatic shortness of breath with exertion, that she rest and slow her breathing as well as use her rescue inhaler. 2. Acute reactive airway exacerbation. Evidenced by diffuse expiratory wheezes , bronchial breath sounds, respiratory failure, symptomatic cough, most likely URI precipitant based on chest imaging and no focal infiltrates. She was ruled out for pulmonary embolism with CT angiogram and flu PCR was negative. She required up titration of her oral steroids to 60 mg daily and received a total 5 day burst. She also received 5 days of levofloxacin to reduce duration of symptoms. She required as needed guaifenesin codeine as well as Tessalon Perles for her cough. On the day of discharge, I am providing her with steroid taper given the significance of her symptoms and prolonged duration. We will also provide her with a rescue inhaler and as needed guaifenesin/codeine. She should have pulmonary function test performed as an outpatient once her acute condition has resolved. 3. Hyperglycemia. Most likely acute reactive hyperglycemia in the setting of steroids, recommend hemoglobin A1c as an outpatient when she has clinically resolved. DISCHARGE MEDICATIONS: Please see official discharge medication reconciliation sheet in chart , prednisone taper with 40 mg x3 days, 20 mg x3 days, then off, guaifenesin/ codeine as needed, as needed albuterol inhaler. DISCHARGE INSTRUCTIONS: We will schedule the patient for a follow-up at the [facility] prior to discharge. TIME SPENT: Greater than 30 minutes were spent on direct patient care, as well as discharge planning and preparation.
[2016-07-30 12:00] VITALS: PULSE 86; RESP 16; O2SAT 93
== END 2016-07-30 13:42 | disposition home or self-care (01) | DRG 202 ==
LOC: F1N 07-26 01:35 → OBSVTOIN 07-27 10:06 → F1N 07-27 17:51
PROVIDERS: ADMIT Internal Medicine; ATTEND Internal Medicine
DX: J45.901 Unspecified asthma with (acute) exacerbation (principal); J96.01 Acute respiratory failure with hypoxia; R73.9 Hyperglycemia, unspecified
CPT/HCPCS: 96365; G0378; J0456; J1650; Q9967

== ENCOUNTER 2017-03-18 13:48 | Emergency (ER) | payer OTHER ==
[2017-03-18] MEDS ORDERED: NS 1,000 ML IV ONE (14:52)
[2017-03-18] MEDS ORDERED: ONDANSETRON 4 MG/2 ML VIAL IVP ONE (14:52)
[2017-03-18] MEDS ORDERED: DEXAMETHASONE 10 MG/ML VIAL IVP ONE (14:52)
[2017-03-18] MEDS ORDERED: METOCLOPRAMIDE 10 MG/2 ML VIAL IVP ONE (14:52)
--- NOTE | 2017-03-18 14:52 | EDPHY ---
H & P Stated Complaint: brain pain/sob/low back pain Time Seen by Provider: 03/18/17 14:40 HPI/ROS: CHIEF COMPLAINT: Headache, chills HISTORY OF PRESENT ILLNESS: Patient is a 51-year-old female comes to the emergency department complaining of headache for the last 5 days. She states that it is gradually got worse each day and she has developed chills and sweats at home over the last 3 days. No trauma. No altered mental status. She has been taking Tylenol at home without significant improvement. Her last dose was at noon today. No vomiting. She also complains of lower back pain that radiates to her groin and down both legs. She had some dysuria week ago but does not today. She denies significant past medical history periods REVIEW OF SYSTEMS: Constitutional: denies: chills, fever, recent illness, recent injury EENTM: denies: blurred vision, double vision, nose congestion Respiratory: denies: cough, shortness of breath Cardiac: denies: chest pain, irregular heart rate, lightheadedness, palpitations Gastrointestinal/Abdominal: denies: abdominal pain, diarrhea, nausea, vomiting, blood streaked stools Genitourinary: denies: dysuria, frequency, hematuria, pain Musculoskeletal: denies: joint pain, muscle pain Skin: denies: lesions, rash, jaundice, bruising Neurological: See HPI denies: numbness, paresthesia, tingling, dizziness, weakness Hematologic/Lymphatic: denies: blood clots, easy bleeding, easy bruising Immunologic/allergic: denies: HIV/AIDS, transplant EXAM: GENERAL: Well-appearing, very talkative, obese and in no acute distress. HEAD: Atraumatic, normocephalic. EYES: Pupils equal round and reactive to light, extraocular movements intact, sclera anicteric, conjunctiva are normal. ENT: TMs normal, nares patent, oropharynx clear without exudates. Moist mucous membranes. NECK: Normal range of motion, supple without lymphadenopathy or JVD. LUNGS: Breath sounds clear to auscultation bilaterally and equal. No wheezes rales or rhonchi. HEART: Regular rate and rhythm without murmurs, rubs or gallops. ABDOMEN: Soft, nontender, normoactive bowel sounds. No guarding, no rebound. No masses appreciated. BACK: No CVA tenderness, no spinal tenderness, step-offs or deformities EXTREMITIES: Normal range of motion, no pitting or edema. No clubbing or cyanosis. NEUROLOGICAL: Cranial nerves II through XII grossly intact. Normal speech, normal gait. 5/5 strength, normal movement in all extremities, normal sensation PSYCH: Normal mood, normal affect. SKIN: Warm, dry, normal turgor, no visible rashes or lesions. Source: Patient Exam Limitations: Language barrier (Canteen Attendant used) - Personal History LMP (Females 10-55): Irregular Current Tetanus/Diphtheria Vaccine: Unsure - Medical/Surgical History Hx Asthma: No Hx Chronic Respiratory Disease: No Hx Diabetes: No Hx Cardiac Disease: No Hx Renal Disease: No Hx Cirrhosis: No Hx Alcoholism: No Hx HIV/AIDS: No Hx Splenectomy or Spleen Trauma: No Other PMH: C-SECT X2, MISCARRAGE - Family History Significant Family History: No pertinent family hx - Social History Smoking Status: Never smoked Alcohol Use: Sober Drug Use: None Constitutional: Initial Vital Signs Temperature (C) 37.5 C 03/18/17 13:56 Heart Rate 107 H 03/18/17 13:56 Respiratory Rate 28 H 03/18/17 13:56 Blood Pressure 148/75 H 03/18/17 13:56 O2 Sat (%) 100 03/18/17 13:56 O2 Delivery Mode Room Air Allergies/Adverse Reactions: No Known Allergies Allergy (Verified 03/18/17 13:55) Home Medications: Medication Instructions Recorded Acetaminophen [Tylenol 325mg (*)] 650 mg PO Q4HRS PRN #0 tab 07/30/16 Albuterol [Proventil Inhaler HFA 2 puffs IH Q4 PRN #1 mdi 07/30/16 (*)] Guaifenesin/Codeine Phosphate 10 ml PO Q4 PRN #400 ml 07/30/16 [Guaifenesin-Codeine Liquid] guaiFENesin [Mucinex 600 MG (*)] 1,200 mg PO BID #20 tab.er 07/30/16 Cephalexin [Keflex] 500 mg PO TID #21 cap 03/18/17 Metoclopramide [Reglan 10 mg tab 10 mg PO BID PRN #10 tab 03/18/17 (RX)] Medical Decision Making - Diagnostics Imaging: Discussed imaging studies w/ pool nurse Radiologist Procedures: Procedure: Lumbar puncture. Indication: Fever, headache After verbal informed consent from patient explaining the risks including infection, bleeding, and neurologic damage, a lumbar puncture was performed after the patient was prepped and draped in the usual fashion. 22 gauge needle used. 25 gauge David needle attempted initially but was not strong enough. The back was anesthetized with 1% lidocaine. Approximately 4 cc of clear fluid was obtained. Opening pressure was not obtained. There were no complications. I then had early on her back for 30 minutes. The procedure was performed by myself. ED Course/Re-evaluation: 4:00 p.m. the patient is feeling much better. Her headache is resolving. Discussed the results of her lab test thus far. She agree to lumbar puncture. 6:04 p.m. patient is doing much better. She states her headache is resolved. She has not had a fever. Her rate is improved. We discussed her lab results which are reassuring. She has no PMNs in her CSF. She has not yet given a urine sample. We will encourage her. 6:15 p.m. the patient's urinalysis is positive. This would explain her body aches and low back pain. I will start her on a dose of Rocephin and flexor home. Differential Diagnosis: Partial list of the Differential diagnosis considered include but were not limited to; headache, viral meningitis, urinary tract infection and although unlikely based on the history and physical exam, I also considered sepsis, Bactrim meningitis, hemorrhage. I discussed these differential diagnoses and the plan with the patient as well as the usual and expected course. The patient understands that the diagnosis is provisional and that in medicine we are not always correct and that further workup is often warranted. Usual and customary warnings were given. All of the patient's questions were answered. The patient was instructed to return to the emergency department should the symptoms at all worsen or return, otherwise to followup with the physician as we discussed. - Data Points Laboratory Results: Laboratory Results 03/18/17 15:00 03/18/17 15:00 03/18/17 16:00 [place] Pathologist Review Zhanna CRAMER MD Microbiology Results: MICROBIOLOGY 03/18/17 16:00 Cerebral Spinal Fluid Gram Stain - Final 03/18/17 16:00 Cerebral Spinal Fluid CSF Culture - Preliminary Medications Given: Discontinued Medications Dexamethasone (Decadron Injection) 10 mg IVP EDNOW ONE Stop: 03/18/17 14:53 Last Admin: 03/18/17 15:18 Dose: 10 mg Sodium Chloride (Ns) 1,000 mls @ 0 mls/hr IV ONCE ONE; Wide Open PRN Reason: Protocol Stop: 03/18/17 14:53 Last Admin: 03/18/17 15:18 Dose: 1,000 mls Ceftriaxone Sodium/Dextrose (Rocephin 1 Gm (Premix)) 50 mls @ 100 mls/hr IV EDNOW ONE PRN Reason: Protocol Stop: 03/18/17 18:42 Last Admin: 03/18/17 18:25 Dose: 50 mls Metoclopramide HCl (Reglan Injection) 10 mg IVP EDNOW ONE Stop: 03/18/17 14:53 Last Admin: 03/18/17 15:18 Dose: 10 mg Ondansetron HCl (Zofran) 4 mg IVP EDNOW ONE Stop: 03/18/17 14:53 Last Admin: 03/18/17 15:18 Dose: 4 mg Departure - Departure Disposition: Home, Routine, Self-Care Clinical Impression: Urinary tract infection Qualifiers: Urinary tract infection type: site unspecified Hematuria presence: without hematuria Qualified Code(s): N39.0 - Urinary tract infection, site not specified Headache Qualifiers: Headache type: unspecified Headache chronicity pattern: acute headache Intractability: not intractable Qualified Code(s): R51 - Headache Condition: Fair Instructions: Urinary Tract Infection in Women (ED), Acute Headache (ED) Referrals: [facility],. [Clinic] - As per Instructions Prescriptions: Cephalexin [Keflex] 500 mg PO TID #21 cap Metoclopramide [Reglan 10 mg tab (RX)] 10 mg PO BID PRN #10 tab PRN Reason: Headache Print Language: Syrian
[2017-03-18 15:10] LABS: % IMMATURE GRANULYOCYTES 0.7 % (0.0-1.1); ABSOLUTE IMMATURE GRANULOCYTES 0.07 10^3/uL (0.00-0.10); ADD DIFF? NO; ADD MORPH? NO; ADD SCAN? NO; ATYPICAL LYMPHOCYTE FLAG 20 (0-99); FRAGMENT RBC FLAG 0 (0-99); HEMATOCRIT 35.6 % (38.0-47.0); HEMOGLOBIN 12.7 g/dL (12.6-16.3); LEFT SHIFT FLG 10 (0-99); LIPEMIA HEMOLYSIS FLAG 90 (0-99); MEAN CELL HEMOGLOBIN 30.1 pg (27.9-34.1); MEAN CELL HEMOGLOBIN CONCENTR. 35.7 g/dL (32.4-36.7); MEAN CELL VOLUME 84.4 fL (81.5-99.8); MEAN PLATELET VOLUME 10.9 fL (8.7-11.7); PLATELET CLUMPS FLAG 10 (0-99); PLATELET COUNT 239 10^3/uL (150-400); RED BLOOD CELL COUNT 4.22 10^6/uL (4.18-5.33); RED CELL DISTRIBUTION WIDTH 12.4 % (11.5-15.2)
[2017-03-18 15:23] LABS: ANION GAP 15 mEq/L (8-16); CALCIUM 8.8 mg/dL (8.5-10.4); CARBON DIOXIDE 20 mEq/l (22-31); CHLORIDE 105 mEq/L (97-110); CREATININE 0.6 mg/dL (0.6-1.0); GLOMERULAR FILTRATION RATE > 60; GLUCOSE 104 mg/dL (70-100); POTASSIUM 4.2 mEq/L (3.5-5.2); SODIUM 140 mEq/L (134-144); SPECIMEN HEMOLYSIS 119
[2017-03-18 16:36] LABS: PROTEIN, CSF 22 mg/dL (12-60)
[2017-03-18 17:09] LABS: CSF APPEARANCE CLEAR (CLEAR); CSF COLOR SLIGHTLY PINK (COLORLESS); CSF SUPERNATANT COLORLESS (COLORLESS)
[2017-03-18 17:10] LABS: CSF APPEARANCE CLEAR (CLEAR); CSF COLOR COLORLESS (COLORLESS)
[2017-03-18 17:15] VITALS: RESP 16
[2017-03-18 17:16] LABS: WBC, CSF 7 /mm3 (0-5)
[2017-03-18 18:09] LABS: WBC, CSF 5 /mm3 (0-5)
[2017-03-18 18:20] LABS: COLOR YELLOW; LEUKOCYTE ESTERASE,URINE 3+ (NEGATIVE); NITRITE,URINE POSITIVE (NEGATIVE)
[2017-03-18 18:24] LABS: BACTERIA 3+ /hpf (NONE SEEN); MUCUS TRACE /lpf (NONE-1+); WBC,URINE 50-182 /hpf (0-3)
[2017-03-18 19:05] VITALS: BP 108/62; PULSE 78; TEMP 98.2; O2SAT 93
== END 2017-03-18 19:06 | disposition home or self-care (01) ==
PROC: 009U3ZX Drainage of Spinal Canal, Percutaneous Approach, Diagnostic (ICD-10-PCS; principal; 2017-03-18)
DX: R51 Headache (principal); N39.0 Urinary tract infection, site not specified; E86.9 Volume depletion, unspecified
CPT/HCPCS: 96374; J0696; J1100; J2405; J2765